=== PATIENT | female | born 1945 | race Two or more races ===

== ENCOUNTER 2018-09-03 08:15 | Inpatient (IN) | payer OTHER ==
[~2018-09-03] VITALS: Ht 149.9 cm; Wt 54.4 kg
[2018-09-03] MEDS ORDERED: SYNTHROID75 MCG PO (13:03)
[2018-09-03] MEDS ORDERED: ASPIR 8181 MG PO (13:04)
[2018-09-03] MEDS ORDERED: ATORVASTATIN CA10 MG PO (13:04)
[2018-09-03] MEDS ORDERED: V-C FORTE CAPSUL1 MG PO (13:04)
[2018-09-03] MEDS ORDERED: PEPCID20 MG PO (13:04)
[2018-09-03] MEDS ORDERED: [UNRECOGNIZED DRUG - OTHER] PO (13:05)
[2018-09-03] MEDS ORDERED: FOLIC ACID1 MG PO (13:05)
[2018-09-03] MEDS ORDERED: SINGULAIR10 MG PO (13:06)
[2018-09-10] MEDS ORDERED: HYDROXYCHLOROQ200 MG PO (11:21)
[2018-09-10] MEDS ORDERED: FOLIC ACID1 MG PO (13:52)
[2018-09-10] MEDS ORDERED: Intestinex CAP PO (13:53)
[2018-09-10] MEDS ORDERED: KETO10TA2 PO (13:53)
[2018-09-10] MEDS ORDERED: V-C FORTE CAPSUL1 MG PO (13:53)
[2018-09-10] MEDS ORDERED: ULTRACET PO (13:54)
== END 2018-09-10 16:52 | disposition home or self-care (01) | DRG 331 ==
LOC: SURG 09-06 06:56 → O/R 09-06 06:56 → SURH 09-06 08:15 → SURG 09-06 18:36
PROVIDERS: ADMIT Surgery
PROC: 0DNW4ZZ Release Peritoneum, Percutaneous Endoscopic Approach (ICD-10-PCS; 2018-09-06)
PROC: 0DJD8ZZ Inspection of Lower Intestinal Tract, Via Natural or Artificial Opening Endoscopic (ICD-10-PCS; 2018-09-06)
PROC: 0DTN4ZZ Resection of Sigmoid Colon, Percutaneous Endoscopic Approach (ICD-10-PCS; principal; 2018-09-06 11:00)
DX: K57.20 Diverticulitis of large intestine with perforation and abscess without bleeding (principal); N73.6 Female pelvic peritoneal adhesions (postinfective)